=== PATIENT | female | born 2005 | race Caucasian/White ===

== ENCOUNTER 2025-08-11 19:54 | Emergency (ER) | payer OTHER ==
[~2025-08-11] VITALS: Ht 165.1 cm; Wt 78.8 kg
[2025-08-11 21:13] LABS: BASO # 0.1 10^3/uL (0.0-0.2); BASO % 0.6 % (0.0-1.0); EOS # 0.1 10^3/uL (0.0-0.5); EOS % 0.8 % (0.0-3.0); LYMPH # 2.5 10^3/uL (1.5-5.0); LYMPH % 29.0 % (24.0-44.0); MONO # 0.6 10^3/uL (0.0-0.8); MONO % 6.5 % (2.0-8.0); NEUTROPHILS # 5.4 10^3/uL (1.5-8.5); NEUTROPHILS % 62.9 % (36.0-66.0); PLATELET COUNT, AUTOMATED 329 10^3/uL (150-450)
[2025-08-11 21:35] LABS: INR 1.03
[2025-08-11 21:51] LABS: CALCIUM LEVEL 9.3 MG/DL (8.5-10.1); CARBON DIOXIDE LEVEL 26 MMOL/L (20-31); CHLORIDE LEVEL 105 MMOL/L (98-107); CK-MB VALUE MASS < 1.0 NG/ML (<3.6); CREATININE FOR GFR 0.58 MG/DL (0.55-1.30); GLOMERULAR FILTRATION RATE > 90.0 (>60); POTASSIUM SERUM 4.1 MMOL/L (3.5-5.1); SODIUM LEVEL 139 MMOL/L (136-145)
[2025-08-11 21:55] LABS: CPK CREATINE PHOSPHOKINASE 89 U/L (34-145)
[2025-08-11 22:15] VITALS: BP 119/76; TEMP 97.2; O2SAT 96
[2025-08-11 22:49] LABS: CK-MB VALUE MASS < 1.0 NG/ML (<3.6)
[2025-08-11 22:50] LABS: CPK CREATINE PHOSPHOKINASE 71 U/L (34-145)
== END 2025-08-11 22:23 | disposition home or self-care (01) ==
LOC: M ED 19:54
DX: R04.0 Epistaxis (principal); T75.4XXA Electrocution, initial encounter; Y92.89 Other specified places as the place of occurrence of the external cause; Y93.89 Activity, other specified; Y99.0 Civilian activity done for income or pay